=== PATIENT | female | born 1995 | race Caucasian/White ===

== ENCOUNTER 2017-01-23 11:10 | Emergency (ER) | payer OTHER ==
[2017-01-23 11:57] LABS: % IMMATURE GRANULYOCYTES 0.5 % (0.0-1.1); ABSOLUTE IMMATURE GRANULOCYTES 0.05 10^3/uL (0.00-0.10); ADD DIFF? NO; ADD MORPH? NO; ADD SCAN? NO; ATYPICAL LYMPHOCYTE FLAG 10 (0-99); FRAGMENT RBC FLAG 0 (0-99); HEMOGLOBIN 13.6 g/dL (12.6-16.3); LEFT SHIFT FLG 0 (0-99); LIPEMIA HEMOLYSIS FLAG 90 (0-99); MEAN CELL HEMOGLOBIN 31.3 pg (27.9-34.1); MEAN CELL HEMOGLOBIN CONCENTR. 34.9 g/dL (32.4-36.7); MEAN CELL VOLUME 89.9 fL (81.5-99.8); MEAN PLATELET VOLUME 9.6 fL (8.7-11.7); PLATELET CLUMPS FLAG 10 (0-99); PLATELET COUNT 211 10^3/uL (150-400); RED BLOOD CELL COUNT 4.34 10^6/uL (4.18-5.33); RED CELL DISTRIBUTION WIDTH 12.4 % (11.5-15.2)
[2017-01-23 12:05] LABS: COLOR YELLOW; LEUKOCYTE ESTERASE,URINE NEGATIVE (NEGATIVE); NITRITE,URINE NEGATIVE (NEGATIVE)
[2017-01-23 12:08] LABS: ANION GAP 14 mEq/L (8-16); CALCIUM 9.8 mg/dL (8.5-10.4); CARBON DIOXIDE 23 mEq/l (22-31); CHLORIDE 102 mEq/L (97-110); CREATININE 0.8 mg/dL (0.6-1.0); GLOMERULAR FILTRATION RATE > 60; GLUCOSE 91 mg/dL (70-100); POTASSIUM 4.3 mEq/L (3.5-5.2); SODIUM 139 mEq/L (134-144)
[2017-01-23 12:21] LABS: ALBUMIN 4.4 g/dL (3.5-5.0); BILIRUBIN-CONJUGATED 0.2 mg/dL (0.0-0.5); BILIRUBIN-UNCONJUGATED 0.8 mg/dL (0.0-1.1); TOTAL PROTEIN 7.1 g/dL (6.3-8.2)
[2017-01-23 12:26] LABS: BACTERIA 3+ /hpf (NONE SEEN); MUCUS 3+ /lpf (NONE-1+)
[2017-01-23 12:31] LABS: RBC,URINE NONE SEEN /hpf (0-3)
[2017-01-23] MEDS ORDERED: NS 1,000 ML IV ONE (12:35)
--- NOTE | 2017-01-23 12:35 | EDPHY ---
General Narrative: CHIEF COMPLAINT: Abdominal pain HISTORY OF PRESENT ILLNESS: Patient complains of right upper quadrant abdominal pain that started yesterday around 5:00 p.m.. This was after a workout. She at [facility] thought it was a musculoskeletal injury. The pain and began to worsen. It also radiates into the right back. [id number] at rest. Moderate to severe when moving. No nausea or vomiting. No lower abdominal pain. No dysuria. No fever. Some sweating and lightheadedness earlier today. She presented to [facility] at , where they performed laboratory studies. They informed that she had an elevated white blood cell count and sent her to our facility for higher level of care. No other associated complaints or modifying factors. REVIEW OF SYSTEMS: Ten systems reviewed and are negative unless otherwise noted in the HPI PCP: In [place]. Goes to [facility] at SPECIALISTS: None PAST MEDICAL HISTORY: None PAST SURGICAL HISTORY: No surgical history SOCIAL HISTORY: Nonsmoker. Occasional alcohol. No drug use. Originally from [place]. [employer] student FAMILY HISTORY: Noncontributory EXAMINATION General Appearance: Alert, no distress Head: normocephalic, atraumatic Eyes: Pupils equal and round, no conjunctival pallor or injection ENT, Mouth: Mucous membranes moist. Airway patent Neck: Normal inspection, supple, non-tender Respiratory: Lungs are clear to auscultation. No wheeze, rhonchi or crackles Cardiovascular: Regular rate and rhythm. No murmur Gastrointestinal: Abdomen is soft and nondistended. There is tenderness in the right upper quadrant and right CVA. Guarding in RUQ. No right lower quadrant tenderness. Negative Rovsing. Negative obturator. No tympany rigidity. Neurological: A&O, nonfocal, normal gait Skin: Warm and dry, no rash. No petechiae or purpura Extremities: Nontender, no pedal edema Psychiatric: Mood and affect normal DIFFERENTIAL DIAGNOSES: Including but not limited to pyelonephritis, cholecystitis, cholelithiasis, renal colic, appendicitis, colitis, mesenteric adenitis MDM: 12:20 p.m. Right-sided abdominal pain with guarding on the right upper quadrant. Laboratory studies and urinalysis suggest urinary tract infection with possible pyelonephritis. Vital signs are stable. She is not tachycardic or tachypneic. She is afebrile. I have ordered IV fluid, Rocephin and CT scan of the abdomen pelvis. 1:30 p.m. Contacted by radiologist Dr. Conte. CT scan of the abdomen pelvis discussed. Findings suggest mesenteric adenitis. 1:45 p.m. Patient re-evaluated. She is resting comfortably finishing her IV fluid. We discussed the CT scan findings. We discussed the laboratory studies. I do feel this is consistent with mesenteric adenitis and possible UTI. Discharged home with recommendations to rest and increase fluid intake as well as over-the- counter anti-inflammatories. I will treat her UTI with Keflex and I have a urine culture pending. There are epithelials present, thus this may be a contaminant. We discussed follow up with [facility] at and ED precautions. I have answered all their questions and the patient and mother comfortable with being discharged home. She is discharged home stable condition. SUPERVISION: Patient was independently examined, but I discussed the case with my secondary supervising physician Dr. Clayton - Diagnostics Imaging Results: Imaging Impressions Abdomen CT 01/23/17 12:35 Impression: 1. Increased number of small benign-appearing lymph nodes within the mesentery. This can be seen with mild mesenteric adenitis. Otherwise, normal CT abdomen and pelvis with contrast enhancement. 2. No CT evidence of appendicitis, abscess or bowel obstruction. Findings discussed with Danny Escalante PAC at 13:35 hour, 01/23/2017. - History Smoking Status: Never smoked - Objective Vital Signs: Initial Vital Signs Temperature (C) 99.1 F 01/23/17 11:20 Heart Rate 109 H 01/23/17 11:20 Respiratory Rate 18 01/23/17 11:20 Blood Pressure 117/72 01/23/17 11:20 O2 Sat (%) 95 01/23/17 11:20 O2 Delivery Mode Room Air Allergies/Adverse Reactions: No Known Allergies Allergy (Unverified 01/23/17 11:20) Home Medications: Medication Instructions Recorded Acetaminophen/Codeine 300/30Mg 1 each PO Q6 PRN #11 tab 01/23/17 [Tylenol #3 (*)] Bcp 01/23/17 Cephalexin [Keflex (*)] 500 mg PO TID #21 cap 01/23/17 Laboratory Results: Laboratory Results 01/23/17 11:50 01/23/17 11:50 01/23/17 01/23/17 01/23/17 11:50 11:50 11:50 WBC RBC Hgb Hct MCV MCH MCHC RDW Plt Count MPV Neut % (Auto) Lymph % (Auto) [place] % (Auto) Eos % (Auto) Baso % (Auto) Nucleat RBC Rel Count Absolute Neuts (auto) Absolute Lymphs (auto) Absolute Monos (auto) Absolute Eos (auto) Absolute Basos (auto) Absolute Nucleated RBC Immature Gran % Immature Gran # Sodium Potassium Chloride Carbon Dioxide Anion Gap BUN Creatinine Estimated GFR Glucose Calcium Total Bilirubin 1.0 mg/dL mg/dL (0.1-1.4) Conjugated Bilirubin 0.2 mg/dL mg/dL (0.0-0.5) Unconjugated Bilirubin 0.8 mg/dL mg/dL (0.0-1.1) AST 21 IU/L IU/L (14-46) ALT 27 IU/L IU/L (9-52) Alkaline Phosphatase 63 IU/L IU/L (38-126) Total Protein 7.1 g/dL g/dL (6.3-8.2) Albumin 4.4 g/dL g/dL (3.5-5.0) Lipase 70 IU/L IU/L (23-300) Beta HCG, Qual NEGATIVE Urine Color YELLOW Urine Appearance HAZY Urine pH 7.0 (5.0-7.5) Ur Specific [place] 1.023 (1.002-1.030) Urine Protein 1+ H (NEGATIVE) Urine Ketones TRACE H (NEGATIVE) Urine Blood NEGATIVE (NEGATIVE) Urine Nitrate NEGATIVE (NEGATIVE) Urine Bilirubin NEGATIVE (NEGATIVE) Urine Urobilinogen NEGATIVE EU EU (0.2-1.0) Ur Leukocyte Esterase NEGATIVE (NEGATIVE) Urine RBC NONE SEEN /hpf /hpf (0-3) Urine WBC 5-10 /hpf H /hpf (0-3) Ur Epithelial Cells 2+ /lpf H /lpf (NONE-1+) Urine Bacteria 3+ /hpf H /hpf (NONE SEEN) Urine Mucus 3+ /lpf H /lpf (NONE-1+) Urine Glucose NEGATIVE (NEGATIVE) 01/23/17 01/23/17 11:50 11:50 WBC 9.92 10^3/uL H 10^3/uL (3.80-9.50) RBC 4.34 10^6/uL 10^6/uL (4.18-5.33) Hgb 13.6 g/dL g/dL (12.6-16.3) Hct 39.0 % % (38.0-47.0) MCV 89.9 fL fL (81.5-99.8) MCH 31.3 pg pg (27.9-34.1) MCHC 34.9 g/dL g/dL (32.4-36.7) RDW 12.4 % % (11.5-15.2) Plt Count 211 10^3/uL 10^3/uL (150-400) MPV 9.6 fL fL (8.7-11.7) Neut % (Auto) 86.0 % H % (39.3-74.2) Lymph % (Auto) 5.4 % L % (15.0-45.0) [place] % (Auto) 7.6 % % (4.5-13.0) Eos % (Auto) 0.0 % L % (0.6-7.6) Baso % (Auto) 0.5 % % (0.3-1.7) Nucleat RBC Rel Count 0.0 % % (0.0-0.2) Absolute Neuts (auto) 8.53 10^3/uL H 10^3/uL (1.70-6.50) Absolute Lymphs (auto) 0.54 10^3/uL L 10^3/uL (1.00-3.00) Absolute Monos (auto) 0.75 10^3/uL 10^3/uL (0.30-0.80) Absolute Eos (auto) 0.00 10^3/uL L 10^3/uL (0.03-0.40) Absolute Basos (auto) 0.05 10^3/uL 10^3/uL (0.02-0.10) Absolute Nucleated RBC 0.00 10^3/uL 10^3/uL (0-0.01) Immature Gran % 0.5 % % (0.0-1.1) Immature Gran # 0.05 10^3/uL 10^3/uL (0.00-0.10) Sodium 139 mEq/L mEq/L (134-144) Potassium 4.3 mEq/L mEq/L (3.5-5.2) Chloride 102 mEq/L mEq/L (97-110) Carbon Dioxide 23 mEq/l mEq/l (22-31) Anion Gap 14 mEq/L mEq/L (8-16) BUN 11 mg/dL mg/dL (7-23) Creatinine 0.8 mg/dL mg/dL (0.6-1.0) Estimated GFR > 60 Glucose 91 mg/dL mg/dL (70-100) Calcium 9.8 mg/dL mg/dL (8.5-10.4) Total Bilirubin Conjugated Bilirubin Unconjugated Bilirubin AST ALT Alkaline Phosphatase Total Protein Albumin Lipase Beta HCG, Qual Urine Color Urine Appearance Urine pH Ur Specific [place] Urine Protein Urine Ketones Urine Blood Urine Nitrate Urine Bilirubin Urine Urobilinogen Ur Leukocyte Esterase Urine RBC Urine WBC Ur Epithelial Cells Urine Bacteria Urine Mucus Urine Glucose Medications Given: Discontinued Medications Ceftriaxone Sodium/Dextrose (Rocephin 1 Gm (Premix)) 50 mls @ 100 mls/hr IV EDNOW ONE PRN Reason: Protocol Stop: 01/23/17 13:04 Last Admin: 01/23/17 12:57 Dose: 50 mls Sodium Chloride (Ns) 1,000 mls @ 0 mls/hr IV EDNOW ONE; Wide Open PRN Reason: Protocol Stop: 01/23/17 12:36 Last Admin: 01/23/17 12:57 Dose: 1,000 mls Departure - Departure Disposition: Home, Routine, Self-Care Clinical Impression: Mesenteric adenitis Abdominal pain Qualifiers: Abdominal location: upper abdomen, unspecified Qualified Code(s): R10.10 - Upper abdominal pain, unspecified UTI (urinary tract infection) Qualifiers: Urinary tract infection type: site unspecified Hematuria presence: without hematuria Qualified Code(s): N39.0 - Urinary tract infection, site not specified Condition: Good Instructions: Mesenteric Adenitis (ED), Urinary Tract Infection in Women (ED), Acute Abdominal Pain (ED) Additional Instructions: 1. Rest and increase fluid intake 2. Ibuprofen 600 mg every 8 hr or Aleve 2 pills every 12 hr for the next 7 days 3. Tylenol 3 as prescribed as needed for pain 4. Follow up with primary care physician at [facility] 5. Return to emergency department for worsening pain, fever, vomiting or diarrhea Referrals: MAYDA LIRIANO [Other] - As per Instructions Stand Alone Forms: School Excuse Prescriptions: Acetaminophen/Codeine 300/30Mg [Tylenol #3 (*)] 1 each PO Q6 PRN #11 tab PRN Reason: Pain, Mild Cephalexin [Keflex (*)] 500 mg PO TID #21 cap
[2017-01-23] MEDS ORDERED: IOPAMIDOL (ISOVUE-300) 100 ML BTL ONE (12:48)
[2017-01-23 14:28] VITALS: BP 112/79; PULSE 69; RESP 16; TEMP 98.4; O2SAT 99
== END 2017-01-23 14:29 | disposition home or self-care (01) ==
DX: N39.0 Urinary tract infection, site not specified (principal); I88.0 Nonspecific mesenteric lymphadenitis; B96.89 Other specified bacterial agents as the cause of diseases classified elsewhere; E86.9 Volume depletion, unspecified
CPT/HCPCS: 96365; J0696; Q9967

== ENCOUNTER 2017-01-24 23:28 | Emergency (ER) | payer OTHER ==
[2017-01-24 23:31] VITALS: BP 133/69; PULSE 100; RESP 18; TEMP 99.5; O2SAT 95
--- NOTE | 2017-01-24 23:53 | EDPHY ---
H & P Stated Complaint: continued back pain - Personal History LMP (Females 10-55): 8-14 Days Ago Current Tetanus/Diphtheria Vaccine: Yes Current Tetanus Diphtheria and Acellular Pertussis (TDAP): Yes - Medical/Surgical History Hx Asthma: No Hx Chronic Respiratory Disease: No Hx Diabetes: No Hx Cardiac Disease: No Hx Renal Disease: No Hx Cirrhosis: No Hx Alcoholism: No Hx HIV/AIDS: No Hx Splenectomy or Spleen Trauma: No Other PMH: uti. denies - Social History Smoking Status: Never smoked Time Seen by Provider: 01/24/17 23:43 HPI/ROS: CHIEF COMPLAINT: Back pain, fever, resolved HISTORY OF PRESENT ILLNESS: 21-year-old female seen emergency department yesterday for complaints of abdominal pain at which point she head CT imaging performed, laboratory studies performed, diagnosed with a urinary tract infection started on cephalexin. She returns to the ER today stating that she had a mild fever this afternoon complaints of right flank pain which have now resolved. No nausea or vomiting. No nuchal rigidity. No chest pain. No cough. No abdominal pain. She has been compliant with her antibiotics PRIMARY CARE PROVIDER: REVIEW OF SYSTEMS: A ten point review of systems was performed and is negative with the exception of the items mentioned in the HPI PAST MEDICAL & SURGICAL HISTORY: No pertinent medical or surgical history SOCIAL HISTORY: Nonsmoker PHYSICAL EXAM (Prior to examination, patient consented to physical exam, hands were washed and my usual and customary physical exam procedures followed) 1) GENERAL: Well-developed, well-nourished, alert and oriented. Appears to be in no acute distress. 2) HEAD: Normocephalic, atraumatic 3) HEENT: Pupils equal, round, reactive to light bilaterally. Sclera anicteric. Nasopharynx, oropharynx, clear, no lesions. No tonsillar enlargement or exudate Ears bilaterally with normal tympanic membranes. 4) NECK: Full range of motion, no meningeal signs. 5) LUNGS: Clear auscultation bilaterally, no wheezes, no rhonchi, no retractions. 6) HEART: Regular rate and rhythm, no murmur, no heave, no gallop. 7) ABDOMEN: No guarding, no rebound, no focal tenderness, negative McBurney's, negative Albarado's, negative Rovsing's, negative peritoneal sign, 8) MUSCULOSKELETAL: Moving all extremities, no focal areas of tenderness, no obvious trauma. No peripheral edema or discoloration. 9) BACK: No CVA tenderness, no midline vertebral tenderness, no fluctuance, no step-off, no obvious trauma, no visual or palpable abnormality. 10) SKIN: No rash, no petechiae. 11) Psychiatric: Patient is oriented X 3, there is no agitation. DIFFERENTIAL DIAGNOSIS: In no particular include but limited to cystitis, pyelonephritis, perinephric abscess, urosepsis (Magalie Trent) Constitutional: Initial Vital Signs Temperature (C) 37.5 C 01/24/17 23:29 Heart Rate 100 01/24/17 23:29 Respiratory Rate 18 01/24/17 23:29 Blood Pressure 133/69 H 01/24/17 23:29 O2 Sat (%) 95 01/24/17 23:29 O2 Delivery Mode Room Air Allergies/Adverse Reactions: No Known Allergies Allergy (Unverified 01/23/17 11:20) Home Medications: Medication Instructions Recorded Acetaminophen/Codeine 300/30Mg 1 each PO Q6 PRN #11 tab 01/23/17 [Tylenol #3 (*)] Bcp 01/23/17 Cephalexin [Keflex (*)] 500 mg PO TID #21 cap 01/23/17 Medical Decision Making ED Course/Re-evaluation: Old medical records reviewed. Patient currently appears well. Tolerating full oral intake. No CVA tenderness. We discussed possibility of pyelonephritis. This time however she is tolerating oral intake, is compliant in already on a antibiotic regimen I do not think that parenteral IV fluids or antibiotics currently indicated. Nonetheless I have recommend she return to the ER if she develops vomiting, new or worsening symptoms or any other concerns she may have. She feels comfortable with this plan. Care of patient under supervision of secondary supervising physician Dr Chacon . (Magalie Trent) PHYSICIAN DOCUMENTATION: The patient was evaluated and managed by the Physician Concert Singer. My co- signature indicates that I have reviewed this chart and I agree with the findings and plan of care as documented. I am the secondary supervising physician. (Leonie Chacon) Departure - Departure Disposition: Home, Routine, Self-Care Clinical Impression: Urinary tract infection Qualifiers: Urinary tract infection type: acute cystitis Hematuria presence: without hematuria Qualified Code(s): N30.00 - Acute cystitis without hematuria Condition: Good Instructions: Urinary Tract Infection in Women (ED) Additional Instructions: Keep taking your antibiotics until finished. Return to the ER immediately if you experience fevers/chills, flu like symptoms, inability to tolerate oral intake, nausea or vomiting, or any other symptoms that concern you. Referrals: NICK Driscoll,. [Clinic] - 1-2 days without fail
== END 2017-01-25 00:03 | disposition home or self-care (01) ==
DX: N30.00 Acute cystitis without hematuria (principal)

== ENCOUNTER 2018-03-29 06:15 | Emergency (ER) | payer BC, OTHER ==
[2018-03-29 06:21] VITALS: BP 140/87
[2018-03-29] MEDS ORDERED: PHENAZOPYRIDINE HCL 200 MG TAB PO ONE (06:44)
[2018-03-29] MEDS ORDERED: CEPHALEXIN 500 MG CAP PO ONE (06:44)
[2018-03-29] MEDS ORDERED: CEPHALEXIN 500MG PREPACK#4 BTL TAKEHOME ONE (06:44)
--- NOTE | 2018-03-29 06:44 | EDPHY ---
H & P Stated Complaint: burning with urination since 0200, pink color to urine, suprapubic pain Time Seen by Provider: 03/29/18 06:43 HPI/ROS: HPI CHIEF COMPLAINT: Urinary frequency, dysuria. HISTORY OF PRESENT ILLNESS: This is a very pleasant 22-year-old female, otherwise healthy no medical history presents emergency room urinary frequency, dysuria, denies any fever, vomiting, abdominal pain or back pain. States she woke up late last night with urinary frequency and dysuria. Past Medical History: Denies medical history Past Surgical History: Denies surgical history Social History: [employer] student, denies drugs alcohol tobacco. Family History: Noncontributory ROS REVIEW OF SYSTEMS: 10 Systems were reviewed and negative with the exception of the elements mentioned in the history of present illness. Exam Constitutional appears well nontoxic triage nursing summary reviewed, vital signs reviewed, awake/alert. Eyes normal conjunctivae and sclera, EOMI, PERRLA. HENT normal inspection, atraumatic, moist mucus membranes, no epistaxis, neck supple/ no meningismus, no raccoon eyes. Respiratory clear to auscultation bilaterally, normal breath sounds, no respiratory distress, no wheezing. Cardiovascular rate normal, regular rhythm, no murmur, no edema, distal pulses normal. Gastrointestinal soft, non-tender, no rebound, no guarding, normal bowel sounds, no distension, no pulsatile mass. Genitourinary no CVA tenderness. Musculoskeletal no midline vertebral tenderness, full range of motion, no calf swelling, no tenderness of extremities, no meningismus, good pulses, neurovascularly intact. Skin pink, warm, & dry, no rash, skin atraumatic. Neurologic awake, alert and oriented x 3, AAOx3, moves all 4 extremities equally, motor intact, sensory intact, CN II-XII intact, normal cerebellar, normal vision, normal speech. Psychiatric normal mood/affect. Heme/Lymph/Immune no lymphadenopathy. Differential Diagnosis: Includes but is not limited to in a particular order UTI, cystitis, pyelonephritis. Medical Decision Making: Plan for this patient check UA. Re-evaluation: Urinalysis reviewed shows nitrite positive UTI. Urine culture be sent. Patient denies any abdominal pain, denies pelvic pain, denies being , denies back pain fever vomiting. Plan for pyridium. Plan for Keflex. Patient understands drink lots of fluids stay well-hydrated Additionally understands return emergency room if worsening abdominal pain, fever, vomiting. Negative . Source: Patient - Personal History LMP (Females 10-55): 15-21 Days Ago Current Tetanus/Diphtheria Vaccine: Yes Current Tetanus Diphtheria and Acellular Pertussis (TDAP): Yes - Medical/Surgical History Hx Asthma: No Hx Chronic Respiratory Disease: No Hx Diabetes: No Hx Cardiac Disease: No Hx Renal Disease: No Hx Cirrhosis: No Hx Alcoholism: No Hx HIV/AIDS: No Hx Splenectomy or Spleen Trauma: No Other PMH: uti. denies - Social History Smoking Status: Never smoked Constitutional: Initial Vital Signs Temperature (C) 36.5 C 03/29/18 06:18 Heart Rate 92 03/29/18 06:18 Respiratory Rate 16 03/29/18 06:18 Blood Pressure 140/87 H 03/29/18 06:18 O2 Sat (%) 97 03/29/18 06:18 O2 Delivery Mode Room Air Allergies/Adverse Reactions: No Known Allergies Allergy (Unverified 03/29/18 06:18) Home Medications: Medication Instructions Recorded Bcp 01/23/17 Cephalexin [Keflex] 500 mg PO Q6H #28 cap 03/29/18 Phenazopyridine HCl [Pyridium] 200 mg PO TID #15 tab 03/29/18 Medical Decision Making - Data Points Laboratory Results: 03/29/18 06:25 Urine Color YELLOW Urine Appearance MODERATELY TURBID Urine pH 6.0 (5.0-7.5) Ur Specific [place] 1.015 (1.002-1.030) Urine Protein 2+ H (NEGATIVE) Urine Ketones NEGATIVE (NEGATIVE) Urine Blood 3+ H (NEGATIVE) Urine Nitrate POSITIVE H (NEGATIVE) Urine Bilirubin NEGATIVE (NEGATIVE) Urine Urobilinogen NEGATIVE EU EU (0.2-1.0) Ur Leukocyte Esterase 3+ H (NEGATIVE) Urine RBC 50-182 /hpf H /hpf (0-3) Urine WBC 50-182 /hpf H /hpf (0-3) Ur Epithelial Cells 1+ /lpf /lpf (NONE-1+) Urine Mucus TRACE /lpf /lpf (NONE-1+) Urine Glucose NEGATIVE (NEGATIVE) Medications Given: Discontinued Medications Cephalexin (Keflex 500 Mg Prepack#4) 1 btl TAKEHOME EDNOW ONE PRN Reason: Protocol Stop: 03/29/18 06:45 Last Admin: 03/29/18 06:54 Dose: 1 btl Cephalexin HCl (Keflex) 500 mg PO EDNOW ONE PRN Reason: Protocol Stop: 03/29/18 06:45 Last Admin: 03/29/18 06:54 Dose: 500 mg Phenazopyridine HCl (Pyridium) 200 mg PO EDNOW ONE Stop: 03/29/18 06:45 Last Admin: 03/29/18 06:54 Dose: 200 mg Point of Care Test Results: Urine Collection Date 03/29/18 Collection Time 06:53 HCG Results Negative Departure - Departure Disposition: Home, Routine, Self-Care Clinical Impression: UTI (urinary tract infection) Condition: Good Instructions: Cephalexin (By mouth), Urinary Tract Infection in Women (ED) Additional Instructions: 1. Drink lots of fluids stay well-hydrated 2. Antibiotics as prescribed 3. Return to the emergency room if worsening symptoms. Referrals: NONE *PRIMARY CARE P,. [Unknown] - As per Instructions [facility],. [Clinic] - As per Instructions Prescriptions: Cephalexin [Keflex] 500 mg PO Q6H #28 cap Phenazopyridine HCl [Pyridium] 200 mg PO TID #15 tab
== END 2018-03-29 07:04 | disposition home or self-care (01) ==
DX: N39.0 Urinary tract infection, site not specified (principal)